=== PATIENT | female | born 1960 | race Caucasian/White ===

== ENCOUNTER 2021-05-12 09:29 | Outpatient (CLI) | payer OTHER, SELFPAY ==
--- NOTE | 2021-05-12 09:33 | MR_ITS ---
WS: [id number] MRI THORACIC SPINE noncontrast. HISTORY: COMPRESSION FX T9-T10 VERTEBRA COMPARISON: 08/09/2018 TECHNIQUE: Multiplanar sequences are performed in sagittal and axial planes. Mild increase in the thoracic kyphosis. Very slight curvature of the mid to lower thoracic vertebral bodies to the LEFT. Disc spaces are mildly desiccated throughout. There is mild anterior wedging of T 7 and T8 8 with no edema. Mild anterior wedging of T10 by 20%. There is been a mild progression of th e fracture since 08/09/2018. There is additional very mild anterior wedging of T11. No acute marrow to edema to suggest an acute fracture. Nerve root sleeve diverticulum on the RIGHT at C7-T1. T1-2: Mild facet arthritis. T2-3: Mild bilateral facet joint arthritis. Mild foraminal narrowing. T3-4: Normal. T4-5: Moderate bilateral facet joint arthritis. Small nerve root sleeve diverticulum on the RIGHT. T here is moderate bilateral foraminal stenosis. T5-6: Mild foraminal narrowing due to facet arthritis. T6-7: Shallow RIGHT paracentral disc protrusion with annular fissure and mild facet arthritis. Mild LEFT foraminal narrowing. T7-8: Moderate RIGHT paracentral disc protrusion and facet joint arthritis. No disc encroachment con tact on the cord. Moderate foraminal stenosis. T8-9: Mild disc bulging with moderate facet joint arthritis. Moderate bilateral foraminal stenosis, LEFT greater than RIGHT. T9-10: Moderate bilateral facet joint arthritis and foraminal stenosis. T10-11: Moderate bilateral facet joint arthritis. There is a small central broad-based disc protrusi on and LEFT nerve root sleeve diverticulum. There is encroachment into the thecal sac with only mild central stenosis. Moderate bilateral foraminal stenosis. T11-12: Normal. At T12-L1 and L1-2. Slight retropulsion of the vertebral bodies with osteophytes and central disc pro trusions. No significant stenosis. MR/MR thoracic spin wo con* [id number] IMPRESSION: 1. Mild progression of the previously described T10 anterior compression fract ure. Fracture now approximately 20%. 2. Additional very mild anterior wedging of T7, T8 and T11, chronic. 3. Multilevel facet joint arthritis as described above. 4. RIGHT paracentral disc protrusions at T6-7 and T7-8 without cord contact. 5. Mild central stenosis at T10-11 with moderate bilateral foraminal stenosis. 6. Moderate bilateral foraminal stenosis at T4-5, T7-8, T8-9 and T9-10.
== END 2021-05-12 09:30 | disposition home or self-care (01) ==
LOC: RADSHAW 09:32
PROVIDERS: Family Provider Nurse Practitioner; PCP Nurse Practitioner; Visit Provider Nurse Practitioner
DX: S22.070A Wedge compression fracture of T9-T10 vertebra, initial encounter for closed fracture (principal); M48.04 Spinal stenosis, thoracic region; M51.24 Other intervertebral disc displacement, thoracic region; X58.XXXA Exposure to other specified factors, initial encounter
CPT/HCPCS: 72146

== ENCOUNTER → 2021-07-21 11:49 | Outpatient (BNVA) | payer OTHER, SELFPAY | PROVIDERS: Family Provider Nurse Practitioner; PCP Nurse Practitioner; Referring Provider Nurse Practitioner; Visit Provider Specialist | DX: R20.0 Anesthesia of skin (principal); R20.2 Paresthesia of skin | CPT/HCPCS: 95910 ==

== ENCOUNTER → 2021-07-29 09:26 | Outpatient (BNVA) | payer OTHER, SELFPAY | PROVIDERS: Family Provider Nurse Practitioner; PCP Nurse Practitioner; Visit Provider Specialist | DX: M25.512 Pain in left shoulder (principal) | CPT/HCPCS: 73030 ==

== ENCOUNTER 2021-08-11 06:00 | Outpatient (RCR) | payer OTHER, SELFPAY | END 2021-09-05 23:59 | disposition home or self-care (01) | LOC: SPT 06:00 | PROVIDERS: PCP Nurse Practitioner; Referring Provider Nurse Practitioner; Visit Provider Nurse Practitioner | DX: M25.512 Pain in left shoulder (principal) | CPT/HCPCS: 97161 ==

== ENCOUNTER 2021-09-06 06:00 | Outpatient (RCR) | payer OTHER, SELFPAY | END 2021-10-06 23:59 | disposition home or self-care (01) | LOC: SPT 06:00 | PROVIDERS: PCP Nurse Practitioner; Referring Provider Nurse Practitioner; Visit Provider Nurse Practitioner | DX: M25.512 Pain in left shoulder (principal) | CPT/HCPCS: 97110 ==

== ENCOUNTER → 2021-10-19 11:25 | Outpatient (BNVA) | payer OTHER, SELFPAY | PROVIDERS: PCP Nurse Practitioner; Referring Provider Nurse Practitioner; Visit Provider Specialist | DX: M65.331 Trigger finger, right middle finger (principal); M18.12 Unilateral primary osteoarthritis of first carpometacarpal joint, left hand; M18.11 Unilateral primary osteoarthritis of first carpometacarpal joint, right hand; G56.02 Carpal tunnel syndrome, left upper limb | CPT/HCPCS: 20550; 73110; 99214; 99215; J1100; J2795 ==

== ENCOUNTER 2021-10-27 07:59 | Outpatient (CLI) | payer OTHER, SELFPAY ==
--- NOTE | 2021-10-27 08:00 | MR_ITS ---
WS: [id number] MRI LEFT SHOULDER HISTORY: M25.512 - Pain in left shoulder COMPARISON: Radiograph 07/29/2021 TECHNIQUE: Multiplanar sequences of the shoulder joint are submitted. Metallic artifact throughout the soft tissues surrounding the LEFT shoulder from prior surgery. Moderate AC joint hypertrophy. AC joint is narrowed with mild soft tissue hypertrophy and bone hypert rophy. There is mild encroachment upon the supraspinatus tendon at the myotendinous insertion. Small osteophyte from the distal acromion with minimal encroachment and narrowing of the subacromial space. Moderate amount of fluid in the subacromial and subdeltoid bursa. No os acromion. Biceps tendon is n ormally positioned within the bicipital groove but the portion of the biceps tendon in the bicipital groove is small caliber and of increased signal suggesting partial prior tear. Osteophytic changes surrounding the humeral head and subchondral cysts and edema. Moderate narrowing of the glenohumeral joint with loss of cartilage along the glenoid. Chronic degenerative appearing c hanges within the labrum. Portions of the labrum are obscured by the mitral metallic artifact. There is also edema in the glenoid. Mild atrophy of the supraspinatus muscle. Insertion site tear of the supraspinatus measures 5 mm in d iameter involving the articular surface. No retraction of the tendon. Distal subscapularis tendon is partially obscured by marked metallic artifact. Infraspinatus tendon is intact. MR/MR shoulder LT wo con* [id number] IMPRESSION: 1. Marked metallic artifact overlies the LEFT shoulder obscuring portions of t he soft tissue from prior surgery. 2. Moderate AC joint arthritis with encroachment upon the myotendinous inserti on of the supraspinatus. 3. Chronic tear biceps tendon in the bicipital groove. 4. 5 mm insertion site tear distal supraspinatus tendon. 5. Moderate osteoarthritic changes at the glenohumeral joint and surrounding t he humeral head. Osteophytosis with subchondral cystic changes and marrow edema . 6. Moderate subacromial and subdeltoid bursal fluid.
== END 2021-10-27 08:00 | disposition home or self-care (01) ==
LOC: RAD 08:00
PROVIDERS: PCP Nurse Practitioner; Visit Provider Specialist
DX: M25.512 Pain in left shoulder (principal)
CPT/HCPCS: 73221

== ENCOUNTER 2021-11-04 13:37 | Outpatient (CLI) | payer OTHER, SELFPAY ==
--- NOTE | 2021-11-04 13:43 | MM_ITS ---
WS: [id number] BILATERAL 3D TOMOSYNTHESIS DIGITAL SCREENING MAMMOGRAPHY WITH CAD CLINICAL INFORMATION: SCREENING HISTORY: Screening mammogram. No current complaints. COMPARISON: December 07, 2018 TECHNIQUE: Bilateral CC and MLO views. FINDINGS: Scattered fibroglandular densities bilaterally. Dystrophic calcification upper outer RIGHT breast. St able ovoid nodule central RIGHT breast measuring 11 mm. Vascular calcification. No suspicious focal m ass, asymmetry, calcifications, or architectural distortion. No evidence of malignancy. MM/[place] [id number] IMPRESSION: BI-RADS: 2-Benign FOLLOW UP: 1 Year Follow-up Recommend return to annual screening mammography.
== END 2021-11-04 13:38 | disposition home or self-care (01) ==
LOC: RAD 13:39
PROVIDERS: PCP Nurse Practitioner; Visit Provider Nurse Practitioner
DX: Z12.31 Encounter for screening mammogram for malignant neoplasm of breast (principal)
CPT/HCPCS: 77063; 77067

== ENCOUNTER → 2021-11-16 13:01 | Outpatient (BNVA) | payer OTHER, SELFPAY | PROVIDERS: PCP Nurse Practitioner; Visit Provider Specialist | DX: M75.112 Incomplete rotator cuff tear or rupture of left shoulder, not specified as traumatic (principal); M75.82 Other shoulder lesions, left shoulder | CPT/HCPCS: 20610; 99213; J1100; J2795; J3301 ==

== ENCOUNTER → 2021-11-18 07:54 | Outpatient (BNVA) | payer OTHER, SELFPAY | PROVIDERS: PCP Nurse Practitioner; Visit Provider Specialist | DX: M18.11 Unilateral primary osteoarthritis of first carpometacarpal joint, right hand (principal); M65.331 Trigger finger, right middle finger | CPT/HCPCS: 99214 ==

== ENCOUNTER 2021-11-20 05:47 | Day surgery (SDC) | payer OTHER, SELFPAY ==
[2021-11-19 08:37] VITALS: BMI 23.1
[2021-11-20] VITALS (8 sets, daily range): BP systolic 160–208; BP diastolic 89–114; PULSE 75–97; RESP 12–20; TEMP 36.2–36.5; O2SAT 94–99
[2021-11-20] MEDS: sodium chloride 0.9% 1,000 ML 30 ML IV (06:16)
[2021-11-20] MEDS: CELEcoxib 200 mg Capsule 400 MG PO (06:16)
[2021-11-20] MEDS: acetaminophen 1,000 MG/100 ML PIGGYBACK 400 MG IV (06:17)
--- NOTE | 2021-11-20 06:55 | W.PM.OPSUD ---
Surgery/Procedure H&P Update DATE OF PROCEDURE: November 20, 2021 DATE H&P PERFORMED: 11/18/21 PREOP DIAGNOSIS: Right long finger triggering PLANNED PROCEDURE: Operation Date: 11/20/21 07:00 Proposed Procedures p RIGHT LONG FINGER TRIGGER FINGER RELEASE [id number],M65.30(Right) - Steph Duke MD Related Problem List Diagnoses (1) Trigger finger, right middle finger:
--- NOTE | 2021-11-20 06:56 | ANES.PREANE2 ---
Pre-Anesthetic Assessment Height/Weight: Height 1.68 m Weight 64.864 kg Temp Pulse Resp BP Pulse Ox 97.7 F 76 18 182/98 99 11/20/21 05:57 11/20/21 05:57 11/20/21 05:57 11/20/21 05:57 11/20/21 05:57 Preop Diagnosis: Right long finger triggering Operation Date: 11/20/21 07:00 Proposed Procedures p RIGHT LONG FINGER TRIGGER FINGER RELEASE [id number],M65.30(Right) - Steph Duke MD Familial anesthetic complications: None Was Beta Martha taken within 24 hours: N/A Was Clonidine taken within 24 hours: N/A Last intake: Intake Last Liquid Date 11/19/21 Last Liquid Time 22:00 Last Solid Date 11/19/21 Last Solid Time 20:00 Social No alcohol and No tobacco Exam alert, oriented x 3, clear to auscultation bilaterally and regular rate & rhythm Airway Submandibular: within normal limits Cervical ROM: within normal limits Mallampati: Class II Dentition: full Pulmonary Asthma and Chronic Obstructive Pulmonary Disease CV/HEM Hypertension Anesthetic Plan ASA status: 2 Anesthesia: General Medications/Allergies Home Medications Medication Instructions Recorded Confirmed Last Taken Type budesonide-formoterol HFA 160 2 puff INHALATION BID 04/17/20 11/20/21 11/19/21 18:00 History mcg-4.5 mcg/actuation aerosol inhaler (Symbicort) gabapentin 300 mg capsule 300 mg PO TID 04/17/20 11/20/21 Unknown History ipratropium 18 mcg-albuterol 103 1 spray INHALATION Q8H PRN 04/17/20 11/20/21 11/19/21 18:00 History mcg/actuation aerosol inhaler lisinopril 5 mg tablet 5 mg PO DAILY 04/17/20 11/20/21 11/19/21 08:00 History sertraline 100 mg tablet 150 mg PO DAILY tab 04/17/20 11/20/21 11/19/21 08:00 History calcium carbonate 1,000 1 tab PO DAILY tab 10/02/20 11/20/21 11/19/21 18:00 History mg-simethicone 60 mg chewable tablet glucosamine sulfate 2KCl 1,000 mg 1,000 mg PO DAILY tab 10/02/20 11/20/21 11/19/21 18:00 History tablet (Glucosamine Relief) multivitamin 1 tab PO DAILY 10/02/20 11/20/21 11/19/21 18:00 History ammonium lactate 12 % lotion 1 applic TOPICAL BID #400 g 12/09/20 11/20/21 Unknown Rx Allergies Allergy/AdvReac Type Severity Reaction Status Date / Time No Known Allergies Allergy Verified 11/20/21 05:58 Current Medications Generic Name Dose Route Start Last Admin Trade Name Elisa PRN Reason Stop Dose Admin Sodium Chloride 1,000 mls @ 30 mls/hr 11/20/21 06:00 11/20/21 06:16 Sodium Chloride 0.9% IV 11/21/21 05:59 30 mls/hr .Q24H JAVIER Administration PFSH Anesthesia Medical History Chronic obstructive pulmonary disease Depression FH: total knee replacement HTN (hypertension) Surgical History H/O shoulder surgery History of back surgery Social History Smoking and tobacco status: never smoked Second hand smoke exposure: No Smoking risk assessment/counseling performed?: No Alcohol intake: never Adopted: Yes Lives independently: Yes Household members: spouse Marital status: Current occupational status: employed History of recent travel: No Current gender identity: Female Data Anesthesia Cardiac Studies: No Data to Display
[2021-11-20] MEDS: ceFAZolin 2,000 MG in sodium chloride 0.9% (plus) 50 ML 100 MG IV (07:00)
--- NOTE | 2021-11-20 08:01 | P.OP_ITS ---
Operative Report Date of procedure: November 20, 2021 Pre-op diagnosis: Right long finger triggering Post-op diagnosis: Right long finger triggering Procedure done: Right long trigger finger release Specimens removed/disposition: None Surgeon: Steph Duke Cartridge Assembling Machine Adjuster: None Anesthesia: General (LMA, ASA 2) Estimated blood loss (mL): 0 Tourniquet time (min): 18 (At 250 mmHg) IV fluids (mL): 500 Urine output (mL): 0 (No Hanks) Complications: None Condition: stable Disposition: PACU (Then discharge to home) Brief History: Carolynn is a 61-year-old woman who presented to my office with complaints of triggering of her right long finger. She denied any injury to her hand, but the finger interferes with her activities of daily living. After discussion, she w ished to proceed with trigger finger release. Risks and complications were discussed as well as questions were answered. Consents were signed preoperatively in the office. Procedure: Patient was brought to the operating theater. She was placed on the operating room table. General anesthesia was administered per LMA. Patient received Ancef 2 g prophylactically. A tourniquet was placed high on the arm and was elevated prior to beginning his surgical procedure. Tourniquet time was 18 minutes at 250 mmHg. Surgical pause was performed prior to commencement of the surgical procedure. At the time of the surgical pause we identified the site and side of surgery. We also identified the patient's identity and appropriate administration of IV antibiotics. Following the surgical pause, an incision was made along the distal palmar crease beneath the long finger. Dissection continued through the skin to the subcutaneous tissues using a scalpel. Blunt dissection was then utilized to spread soft tissues and allow access to the A1 sergio. It was then incised longitudinally and sharply using a knife. This was accomplished without difficulty and atraumatically. Once the A1 sergio was released, tendons were brought up out of the wound and evaluated. There were no gross masses on the tendons. Tendons were returned to normal position. We then irrigated the wound and subsequently closed it with 3-0 nylon with an interrupted mattress type suture. Following closure of the wound, the wound was injected with bupivacaine plain into the subcutaneous tissues as a local anesthetic. Sterile dressing was then placed consisting of Dermabond, OpSite, fluffed fluffs, sterile soft roll, and an Andrei wrap. The patient was returned to recovery in satisfactory condition. She will be discharged home to follow-up with me in the office. There were no complications and no specimens. Related Problem List Diagnoses (1) Trigger finger, right middle finger:
--- NOTE | 2021-11-20 13:42 | ANE.PACU2 ---
Inpatient post-anesthesia follow up: Airway intact: Yes Vital signs: Temperature 97.2 F Pulse Rate 75 Respiratory Rate 18 Blood Pressure 186/97 Pulse Oximetry 96 Oxygen Delivery Me thod Room Air Oxygen Flow Rate Fraction of Inspir ed Oxygen Hydration adequate: Yes Nausea and vomiting: No Pain level: 1 Mental status: Baseline
== END 2021-11-20 08:56 | disposition home or self-care (01) ==
PROVIDERS: PCP Nurse Practitioner; Visit Provider Specialist
PROC: (CPT 26055; principal; 2021-11-20 07:00)
DX: M65.331 Trigger finger, right middle finger (principal); J44.9 Chronic obstructive pulmonary disease, unspecified; I10 Essential (primary) hypertension
CPT/HCPCS: 26055; J1100; J2370; J2405; J2704; J3010; J3490; J7030

== ENCOUNTER → 2021-12-03 08:31 | Outpatient (BNVA) | payer OTHER, SELFPAY | PROVIDERS: PCP Nurse Practitioner; Visit Provider Nurse Practitioner Family | DX: Z48.89 Encounter for other specified surgical aftercare (principal) | CPT/HCPCS: 99024 ==

== ENCOUNTER → 2021-12-08 13:18 | Outpatient (BNVA) | payer OTHER, SELFPAY | PROVIDERS: PCP Nurse Practitioner; Visit Provider Nurse Practitioner Family | DX: Z48.89 Encounter for other specified surgical aftercare (principal) | CPT/HCPCS: 99024; 99213 ==

== ENCOUNTER → 2022-02-03 08:55 | Outpatient (BNVA) | payer OTHER, SELFPAY | PROVIDERS: PCP Nurse Practitioner; Visit Provider Specialist | DX: M18.11 Unilateral primary osteoarthritis of first carpometacarpal joint, right hand (principal) | CPT/HCPCS: 20610; 73130; 99213 ==

== ENCOUNTER 2022-02-03 15:41 | Outpatient (CLI) | payer OTHER, SELFPAY | END 2022-02-03 15:42 | disposition home or self-care (01) | LOC: SPT 15:42 | PROVIDERS: PCP Nurse Practitioner; Visit Provider Specialist | DX: Z46.89 Encounter for fitting and adjustment of other specified devices (principal); M18.11 Unilateral primary osteoarthritis of first carpometacarpal joint, right hand | CPT/HCPCS: 97760; 99213; L3924 ==

== ENCOUNTER 2022-02-20 15:50 | Emergency (ER) | payer OTHER, BC, SELFPAY ==
--- NOTE | 2022-02-20 15:57 | XRR_ITS ---
PROCEDURE INFORMATION: Exam: XR Left Ankle Exam date and time: 02/20/2022 4:11 PM Age: 61 years old Clinical indication: Injury or trauma; Fall; Blunt trauma; Ankle; Left TECHNIQUE: Imaging protocol: Radiologic exam of the Left ankle. Views: 3 or more views. COMPARISON: No relevant prior studies available. FINDINGS: Bones/joints: There is a benign exostosis present involving the distal lateral shaft of the tibia. This finding appears chronic. No acute bony abnormalities seen. A small bone spurs present on the inferior calcaneus. Soft tissues: Soft tissue edema is seen in the lateral aspect of the ankle . XR/XR ankle LT min 3V* [id number] IMPRESSION: 1. No acute bone abnormality. 2. Soft tissue edema lateral aspect of the ankle. . 3. Small chronic exostosis seen in the distal lateral shaft of the tibia. 4. Bone spur inferior calcaneus
[2022-02-20 16:05] VITALS: BP 145/93; PULSE 88; RESP 18; TEMP 36.3; O2SAT 99; BMI 22.8
--- NOTE | 2022-02-20 17:55 | W.ED.EXTPRO ---
HPI - Extremity Problem General: Chief complaint: Extremity Injury, Lower Stated complaint: Left ankle injury Time Seen by Provider: 02/20/22 17:33 History of Present Illness: 61-year-old female comes in today with complaints of injury to the left ankle. Patient reports that she was walking and she accidentally rolled her ankle around noon today. Patient had increased swelling and bruising and was concerned about fracture. Patient has been able to bear weight on it. Patient appears in no acute distress. Associated symptoms: Deny chest pain or fever(s) Review of Systems Const: Denies: fever(s) Card: Denies: chest pain Resp: Denies: dyspnea Musc: Reports: extremity pain and extremity swelling PFS ED PFSH: Medical History Chronic obstructive pulmonary disease Depression FH: total knee replacement HTN (hypertension) Surgical History H/O shoulder surgery History of back surgery Social History Smoking and tobacco status: never smoked Second hand smoke exposure: No Smoking risk assessment/counseling performed?: No Alcohol intake: never Adopted: Yes Lives independently: Yes Household members: spouse Marital status: Current occupational status: employed History of recent travel: No Current gender identity: Female Physical Exam Const: COMMON NORMALS: alert HENMT: COMMON NORMALS: normocephalic HEAD & SCALP: normocephalic Neck/C-Spine: COMMON NORMALS: full ROM Resp: COMMON NORMALS: normal respiratory effort Cardio: COMMON NORMALS: regular rate RATE: regular rate Back/Pelvis: COMMON NORMALS: thoracic and lumbar spine normal to inspection Extremity: LEFT LOWER EXTREMITY: Yes ankle joint (Swelling neck ecchymosis to the lateral left ankle.) Left ankle: Yes inspection, Yes palpation (Positive pulses and sensation.) and Yes ROM Neuro: SENSORIUM/ORIENTATION: Yes alert Skin: COMMON NORMALS: turgor normal GENERAL SKIN EXAM: turgor normal Course Vital Signs: Vital signs: Vital Signs Temperature 97.4 F L 02/20/22 16:05 Pulse Rate 88 02/20/22 16:05 Respiratory Rate 18 02/20/22 16:05 Blood Pressure 145/93 02/20/22 16:05 Pulse Oximetry 99 02/20/22 16:05 Oxygen Delivery Me thod 02/20/22 16:05 MDM - Extremity (Nontraumatic) Medical Decision Making 61-year-old female comes in today for injury to the left ankle. On exam patient has some tenderness and swelling with ecchymosis to the left lateral ankle. Pulses and sensation are intact. Differential diagnosis includes fracture, sprain, contusion. X-ray noted no fracture or dislocation. Reviewed exam with patient with recommendations for treatment and follow-up. Patient reported understanding and agreed to plan. Lab Data Radiology Impressions Ankle X-Ray 02/20/22 15:57 IMPRESSION: 1. No acute bone abnormality. 2. Soft tissue edema lateral aspect of the ankle. . 3. Small chronic exostosis seen in the distal lateral shaft of the tibia. 4. Bone spur inferior calcaneus Discharge Plan Discharge Patient Disposition: Home Clinical Impression: Left ankle sprain Qualifiers: Encounter type: initial encounter Involved ligament of ankle: unspecified ligament Qualified Code(s): S93.402A - Sprain of unspecified ligament of left ankle, initial encounter Condition: Stable Prescriptions: No Action multivitamin Tablet 1 tab PO DAILY calcium carbonate-simethicone 1,000-60 mg tablet,chewable 1 tab PO DAILY glucosamine sulfate 2KCl [Glucosamine Relief] 1,000 mg tablet 1,000 mg PO DAILY Rx Instructions: administer with meals ammonium lactate 12 % lotion 1 applic topical BID Qty: 400 5RF gabapentin 300 mg capsule 300 mg PO TID ipratropium-albuterol 18-103 mcg/actuation aerosol 1 spray inhalation Q8H PRN (Reason: shortness of breath or wheezing) budesonide-formoterol [Symbicort] 160-4.5 mcg/actuation HFA aerosol inhaler 2 puff inhalation BID sertraline 100 mg tablet 150 mg PO DAILY lisinopril 5 mg tablet 5 mg PO DAILY (DME) [facility] left thumb splint See Rx Instructions .Route .MEDSUPPLY Qty: 1 0RF Rx Instructions: As directed Discharge Orders: Discharge ED (Routine); Ordered 02/20/22 Ordered By: Kermit Baxter Referrals: Lily Oh INFUSION THERAPY NURSE [Primary Care Provider] - Discharge Diet: Usual diet Discharge Activity: Increase activity as tolerated Patient Instructions: Ankle Sprain (ED) Activity Restrictions/Additional Instructions: Elastic bandage for comfort, acetaminophen or ibuprofen for pain, ice and elevate for the next 2 to 3 days for swelling and pain. Follow-up with primary care in 1 week for recheck. Coding Level of Care Code ED Electric Motor Repairman for Hilda Ornelas
== END 2022-02-20 18:06 | disposition home or self-care (01) ==
PROVIDERS: Emergency Provider Nurse Practitioner Family; PCP Nurse Practitioner
DX: S93.402A Sprain of unspecified ligament of left ankle, initial encounter (principal); I10 Essential (primary) hypertension; J44.9 Chronic obstructive pulmonary disease, unspecified; X50.1XXA Overexertion from prolonged static or awkward postures, initial encounter
CPT/HCPCS: 73610; 99283

== ENCOUNTER → 2022-07-14 10:06 | Outpatient (BNVA) | payer OTHER, SELFPAY | PROVIDERS: PCP Nurse Practitioner; Referring Provider Nurse Practitioner; Visit Provider Specialist | DX: M18.0 Bilateral primary osteoarthritis of first carpometacarpal joints (principal) | CPT/HCPCS: 20610; 73110; 99213; J1100; J2795; J3301 ==

== ENCOUNTER → 2022-07-20 14:36 | Outpatient (BNVA) | payer OTHER, SELFPAY | PROVIDERS: PCP Nurse Practitioner; Visit Provider Podiatrist Foot & Ankle Surgery | DX: M21.371 Foot drop, right foot (principal); L60.3 Nail dystrophy; M20.40 Other hammer toe(s) (acquired), unspecified foot; G62.9 Polyneuropathy, unspecified; M21.42 Flat foot [pes planus] (acquired), left foot; M21.41 Flat foot [pes planus] (acquired), right foot | CPT/HCPCS: 99213 ==

== ENCOUNTER 2022-10-07 06:00 | Outpatient (RCR) | payer OTHER, SELFPAY | END 2022-11-05 23:59 | disposition home or self-care (01) | LOC: SPT 06:00 | PROVIDERS: PCP Nurse Practitioner; Visit Provider Nurse Practitioner | DX: R32 Unspecified urinary incontinence (principal) | CPT/HCPCS: 97110; 97161; 97530 ==

== ENCOUNTER → 2022-10-20 10:30 | Outpatient (BNVA) | payer OTHER, SELFPAY | PROVIDERS: Visit Provider Specialist | DX: M18.0 Bilateral primary osteoarthritis of first carpometacarpal joints (principal) | CPT/HCPCS: 20610; J1100; J2795; J3301 ==

== ENCOUNTER 2022-10-21 09:06 | Outpatient (CLI) | payer OTHER, SELFPAY ==
--- NOTE | 2022-10-21 09:13 | MR_ITS ---
WS: [id number] MRI THORACIC SPINE WITHOUT CONTRAST TECHNIQUE: Sagittal T1, T2 and STIR imaging. Axial T2 imaging. Noncontrast imaging obtained. CLINICAL INFORMATION: INTERVERTEBRAL DISC DISORDER W/RADICULPATHY TSPINE COMPARISON: MRI May 12, 2021 FINDINGS: Moderate thoracic curve. No acute compression fractures. Small central disc protrusions in the upper and mid thoracic spine. Additional small protrusions lower thoracic spine. Chronic anterior wedging i n the mid thoracic spine with endplate Schmorl's nodes. Cord signal appears normal. Mild compression superior endplate at T10 with chronic appearance is unchanged. Small central protrus ions more prominent at T6-T7, T7-T8, T8-T9, T10-T11, T12-L1, and L1-L2. Slight retrolisthesis T12 on L1. Disc protrusion T7-T8 with slight indentation on the thoracic cord. Mild central canal stenosis T10-T 11. Narrowing of the subarticular recess L1-L2 RIGHT greater than LEFT. Foraminal narrowing worse at RIGHT T10-T11 with moderate RIGHT foraminal narrowing. Moderate bilatera l T12-L1 foraminal narrowing. Mild bilateral T7-T8, T8-T9,T9-T10 bony foraminal narrowing unchanged. Moderate facet arthropathy lower thoracic spine. Normal caliber thoracic aorta. MR/MR thoracic spin wo con* [id number] IMPRESSION: 1. Mild thoracic kyphosis. Mild thoracic curve. No acute appearing compression fractures. 2. Chronic anterior wedging with mild compression superior endplate T10 is unc hanged. 3. RIGHT pericentral disc protrusion T7-T8 with slight indentation RIGHT ventr al thoracic cord is unchanged in appearance. 4. Mild central canal stenosis T10-T11 appears stable. Moderate RIGHT T10-T11 bony foraminal narrowing. 5. Moderate bilateral T12-L1 foraminal narrowing. 6. Mild bilateral L1-L2 foraminal narrowing worse in the RIGHT with narrowing of the RIGHT L1-L2 subarticular recess. 7. Moderate facet arthropathy in the mid and lower thoracic spine unchanged. 8. Overall no significant changes compared to May 12, 2021.
== END 2022-10-21 09:07 | disposition home or self-care (01) ==
PROVIDERS: PCP Nurse Practitioner; Visit Provider General Practice
DX: M51.14 Intervertebral disc disorders with radiculopathy, thoracic region (principal); M48.04 Spinal stenosis, thoracic region
CPT/HCPCS: 72146

== ENCOUNTER 2022-11-06 06:00 | Outpatient (RCR) | payer OTHER, SELFPAY | END 2022-12-02 23:59 | disposition home or self-care (01) | LOC: SPT 06:00 | PROVIDERS: PCP Nurse Practitioner; Visit Provider Nurse Practitioner | DX: R32 Unspecified urinary incontinence (principal) | CPT/HCPCS: 97530 ==

== ENCOUNTER → 2022-11-15 10:16 | Outpatient (BNVA) | payer OTHER, SELFPAY | PROVIDERS: PCP Nurse Practitioner; Visit Provider Podiatrist Foot & Ankle Surgery | DX: M21.371 Foot drop, right foot (principal); L60.3 Nail dystrophy; M20.41 Other hammer toe(s) (acquired), right foot; M21.42 Flat foot [pes planus] (acquired), left foot; M21.41 Flat foot [pes planus] (acquired), right foot; G62.9 Polyneuropathy, unspecified | CPT/HCPCS: 99213 ==

== ENCOUNTER 2022-11-23 09:59 | Outpatient (CLI) | payer OTHER, SELFPAY ==
--- NOTE | 2022-11-23 10:10 | MM_ITS ---
WS: [id number] BILATERAL 3D TOMOSYNTHESIS DIGITAL SCREENING MAMMOGRAPHY WITH CAD CLINICAL INFORMATION: SCREENING HISTORY: Screening mammogram. No current complaints. COMPARISON: November 04, 2021 TECHNIQUE: Bilateral CC and MLO views. FINDINGS: Scattered fibroglandular densities bilaterally. No suspicious focal mass, asymmetry, calcifications, or architectural distortion. No evidence of malignancy. Stable 11 mm ovoid nodule RIGHT breast. Dystr ophic lucent centered calcifications. Vascular calcification. MM/[place] [id number] IMPRESSION: BI-RADS: 2-Benign FOLLOW UP: 1 Year Follow-up Recommend return to annual screening mammography.
== END 2022-11-23 10:00 | disposition home or self-care (01) ==
LOC: RAD 10:04 → MOBLMAM 10:14
PROVIDERS: PCP Nurse Practitioner; Visit Provider Nurse Practitioner
DX: Z12.31 Encounter for screening mammogram for malignant neoplasm of breast (principal)
CPT/HCPCS: 77063; 77067

== ENCOUNTER → 2022-12-02 10:14 | Outpatient (BNVA) | payer OTHER, SELFPAY | PROVIDERS: PCP Nurse Practitioner; Visit Provider Podiatrist Foot & Ankle Surgery | DX: M21.371 Foot drop, right foot; L60.3 Nail dystrophy; M20.41 Other hammer toe(s) (acquired), right foot; M20.42 Other hammer toe(s) (acquired), left foot; M21.41 Flat foot [pes planus] (acquired), right foot; M21.42 Flat foot [pes planus] (acquired), left foot; G62.9 Polyneuropathy, unspecified | CPT/HCPCS: 28010; 99214 ==

== ENCOUNTER 2023-01-18 07:39 | Oncology outpatient (recurring) (ONCR) | payer OTHER, SELFPAY ==
--- OUTSIDE RECORDS SUMMARY | 2023-01-18 07:42 | XMS_ITS | Patient Health Record ---
Author Name Unknown Organization [facility] Address [address] [place] [address] Care Team Providers Care Removable Prosthodontist Name Role Phone Lily Samuels Primary Care Provider Unav ailable Johnna Hernandez Unavailable [phone] BRIAN Newton Unavailable Unavailable ALLERGIES No Known Allergies REASON FOR REFERRAL No Information MEDICATIONS Medication SIG (Take, Route, Frequency, Duration) Notes Start Date End Date Status Reglan 10 MG 1 tablet as directed Orally once for 1 day 10/26/2022 Active Sertraline HCl 25 MG 1 tablet Orally Once a day Active Lisinopril 5 MG 1 tablet Orally Once a day Active Wixela Inhub 250-50 MCG/ACT 1 puff Inhalation Twice a day Active SOCIAL HISTORY Tobacco Use: Social History Observation Description Date Details (start date - stop date) Never Smoker NA - NA Sex Assigned At : Social History Observation Description Sex Assigned At Unknown Tobacco Use/Smoking Question Answer Notes Are you a nonsmoker Alcohol Screen (Audit-C) Question Answer Notes Did you have a drink containing alcohol in the p ast year? No Points 0 Interpretation Negative VITAL SIGNS Heart Rate 65 /min 10/26/2022 Temperature 96.8 degrees Fahrenheit 10/26/2022 Respiratory Rate 20 /min 10/26/2022 Height-cm 167.64 cm 10/26/2022 Oximetry 100 % 10/26/2022 Blood pressure diastolic 76 mm Hg 10/26/2022 Weight-kg 60.33 kg 10/26/2022 Height 66 in 10/26/2022 Blood pressure systolic 124 mm Hg 10/26/2022 Weight 133.0 lbs 10/26/2022 BMI 21.46 kg/m2 10/26/2022 Encounters Encounter Location Date Provider Diagnosis [facility] [address] [place] [address] 10/22/2022 [place] [facility] [address] [place] [address] 10/26/2022 [place] [facility] [address] [place] [address] 10/26/2022 Johnna Hernandez Preprocedural examination Z01.818 and Screening for colon cancer Z12.11 ASSESSMENTS Encounter Date Diagnosis Assessment Notes Treatment Notes Treatment Clinical Notes 10/26/2022 Screening for colon cancer (ICD-10 - Z12.11) 10/26/2022 Preprocedural examination (ICD-10 - Z01.818) The patient has a prerequisite risk factors for development of colon cancer. I have discussed the options of screening testing with their advantages and disadvantages. I have recommended screening colonoscopy with possible biopsy and polypectomy. Risks and Benefits: The benefits, risks, and complications were presented to pt. The patient is aware of the risk of bleeding, perforation, infection, and anesthetic complications related to colonoscopy. The patient is aware that although colonoscopy is an accurate procedure, it does have some limitations. As a result, some lesions, including cancer may be missed by colonoscopy. Ample time was given to answer all questions. Instructions given for the bowel prep. Follow up will be determined after the colonoscopy. Refer back to PCP. 10/26/2022 Other Colonoscopy: Be fore Your Procedure material was printed, Learning About Foods That Are Good Sources of Fiber material was printed PLAN OF TREATMENT Pending Test Test Name Order Date Colonoscopy, Average Risk Screening-G012 1 10/26/2022 Next Appt Details Provider Name:Stephen toledo, 02/15/2023 01:30:00 PM, [address] [place], [address], Insurance Providers Payer Name Payer Address Payer Phone Subscriber Number Group Number Insured Name Patient Relationship to Insured Coverage Start Date Coverage End Date [employer] [address] [place] [phone] [id number] Carolynn Chavez Self - patient is the insured MEDICAL (GENERAL) HISTORY Medical History History ICD Code Hypertension Hemorrhoids COPD Depression Arthritis Degenerative disc disease Surgical History Surgery Date(Month/Year) Lumbar spine surgeries and fusion Right shoulder reverse arthroplasty Right knee replacement Right middle finger trigger release Uvulectomy
--- OUTSIDE RECORDS SUMMARY | 2023-01-18 07:42 | XMS_ITS | Continuity of Care Document ---
Author Name Unknown Organization [facility] Address [address] [place] [id number] Care Team Providers Care Rfid Technician Name Role Phone ANAIS VALVERDE Primary Care Physician Encounter MARIELENA_KIERAN [id number] Date(s): 12/27/22 - 12/27/[address] [address]- Discharge Disposition: Home or Self Care Attending Physician: SEJAL DOSS MD Allergies, Adverse Reactions, Alerts No Known Medication Allergies Assessment and Plan Diagnostic Tests Pending * Immunoglobulin G Synthesis Rate (CQ) 12/27/22 * Oligoclonal Bands CSF (CQ) 12/27/22 Results Laboratory List Name Date Cell Count CSF w/Reflex Diff. Stain Man 12/27/22 Glucose CSF 12/27/22 Total Protein CSF (Protein CSF) 12/27/22 Most recent to oldest [Reference Range]: 1 2 CSF Clarity [Clear] Clear (12/27/22 9:02 AM) CSF Color [Colorless] Colorless (12/27/22 9:02 AM) RBC CSF Cnt 611.11 cells/uL *NA* (12/27/22 9:02 AM) Tube Number 3 (12/27/22 9:02 AM) WBC CSF Cnt [>=9.9 cells/uL] 0.0 cells/u L *LOW* (12/27/22 9:02 AM) Glucose CSF [41-69 mg/dL] 61 mg/dL (12/27/22 9:02 AM) Tube Number CSF Tube 4 (12/27/22 9:02 AM) Tube 4 (12/27/22 9:02 AM) Protein Total CSF [16.0-44.0 mg/dL] 23.3 mg/dL (12/27/22 9:02 AM) Orders for Microbiology Reports Name Date Gram Stain 12/27/22 Microbiology Reports TEST:Gram Stain STATUS:Order in Progress BODY SITE: SOURCE:Cerebrospinal Fluid COLLECTED DATE/TIME:12/27/22 9:02 AM STAIN REPORT No cells seen No organisms seen Radiology Reports * Exam Date Time Procedure Performing Provider Status 12/27/22 9:12 AM IR Spinal Tap Therap eutic w Imaging Yun Tolliver Rad Techno I; Auth (Verified) Notes: (IR Spinal Tap Therapeutic w Imaging) Reason For Exam: Multiple sclerosis REPORT EXAMINATION: FLUOROSCOPY GUIDED LUMBAR PUNCTURE HISTORY: Evaluate for multiple sclerosis COMPARISON: None PHYSICIAN: Rocco Ace MD ANESTHESIA: Local DURATION: 10 Minutes MEDICATIONS:1% Lidocaine for local anesthesia COMPLICATIONS:None TECHNIQUE: After explanation of the risks, benefits, alternatives, and procedural details informed consent was obtained and a copy placed in the chart. The patient was brought to the fluoroscopy suite and positioned prone on the table. An appropriate entrance site was chosen. The overlying skin wasprepped and draped in normal sterile fashion. Maximal sterile barrier and sterile ultrasound technique were used for the entire procedure. Time out performed. Subcutaneous anesthesia achived with 5 mL of 1% lidocaine. Under serial fluoroscopic guidance a 22-gauge spinal needle was used to enter thethecal sac at L3-L4 with return of clear CSF. 11 mm H2O opening pressure was measured. Approximately 12 ml of CSF was aspirated and samples were sent for labs. The needle was removed and sterile Band-Aid applied. Spot fluoroscopic images were obtained. The patient tolerated the procedure well FINDINGS/IMPRESSION: Fluoroscopy guided lumbar puncture was performed without immediate complications. Opening pressure of 11 mm H2O. Final Signed by: ROCCO ACE MD Signed (Electronic Signature): 12/27/2022 10:44 am CDT Vital Signs Most recent to oldest [Reference Range]: 1 Patient Height 167.64 cm (12/27/22 8:00 AM) Patient Weight (kg) 58.97 kg (12/27/22 8:00 AM) [place] Body Weight Calculated 59.3 kg (12/27/22 8:00 AM) BSA Measured 1.66 m2 (12/27/22 8:00 AM) Body Mass Index Measured 20.98 kg/m2 (12/27/22 8:00 AM) Temperature Tympanic [96.6-99.6 DegF] 97 .7 DegF (12/27/22 8:00 AM) SpO2 94 % (12/27/22 10:15 AM) Peripheral Pulse Rate [60-100 bpm] 81 bp m (12/27/22 10:15 AM) Respiratory Rate [10-21 br/min] 16 br/mi n (12/27/22 8:00 AM) Social History Social History Type Response Sex Female Radiology * ROCCO ACE MD: VERIFY, VERIFY Event Display: Report EXAMINATION: FLUOROSCOPY GUIDED LUMBAR PUNCTURE HISTORY: Evaluate for multiple sclerosis COMPARISON: None PHYSICIAN: Rocco Ace MD ANESTHESIA: Local DURATION: 10 Minutes MEDICATIONS:1% Lidocaine for local anesthesia COMPLICATIONS:None TECHNIQUE: After explanation of the risks, benefits, alternatives, and procedural details informed consent was obtained and a copy placed in the chart. The patient was brought to the fluoroscopy suite and positioned prone on the table. An appropriate entrance site was chosen. The overlying skin wasprepped and draped in normal sterile fashion. Maximal sterile barrier and sterile ultrasound technique were used for the entire procedure. Time out performed. Subcutaneous anesthesia achived with 5 mL of 1% lidocaine. Under serial fluoroscopic guidance a 22-gauge spinal needle was used to enter thethecal sac at L3-L4 with return of clear CSF. 11 mm H2O opening pressure was measured. Approximately 12 ml of CSF was aspirated and samples were sent for labs. The needle was removed and sterile Band-Aid applied. Spot fluoroscopic images were obtained. The patient tolerated the procedure well FINDINGS/IMPRESSION: Fluoroscopy guided lumbar puncture was performed without immediate complications. Opening pressure of 11 mm H2O. Final Signed by: ROCCO ACE MD Signed (Electronic Signature): 12/27/2022 10:44 am CDT Patient Care team information Care Team Personnel Name: ANAIS VALVERDE Position: Physician - View Only Member Role: Primary Care Physician Address: Address: [address] [address]- Care Team Related Persons Name: LENARD CRUZ Address: Home
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
[2023-01-18 09:16] LABS: Basophils % 0.8 %; Eosinophils # 0.1 10^3/uL (0.0-0.8); Eosinophils % 1.7 %; Hematocrit 38.4 % (36-47); Lymphocytes # 1.7 10^3/uL (0.8-4.8); Lymphocytes % 32.3 %; Mean Corpuscular HGB Conc 32.3 g/dL (30-55); Mean Corpuscular Hemoglobin 31.7 pg (27-33); Mean Corpuscular Volume 98.2 fl (85-98); Mean Platelet Volume 9.7 fL (7.4-10.4); Monocytes # 0.3 10^3/uL (0.2-0.9); Monocytes % 5.1 %; Neutrophils % 59.9 %; Nucleated Red Blood Cells % 0 %; Platelet Count 229 10^3/cmm (157-399); Red Blood Count 3.91 10^6/uL (3.85-5.65); Red Cell Distribution Width 13.1 % (12.1-15.1); White Blood Count 5.33 10^3/uL (3.29-11.43)
[2023-01-18 09:37] LABS: Alanine Aminotransferase 18 U/L (0-33); Albumin Level 4.5 g/dL (3.5-5.2); Alkaline Phosphatase 69 U/L (35-105); Anion Gap 11.6 (5-19); Aspartate Amino Transferase 26 U/L (0-32); Blood Urea Nitrogen 10 mg/dL (8-23); Calcium 9.3 mg/dL (8.5-10.5); Carbon Dioxide 30 mmol/L (22-29); Chloride 99 mmol/L (98-107); Globulin 2.3 g/dL (1.3-4.6); Glomerular Filtration Rate 72.2 mL/min (90-130); Glucose 86 mg/dL (65-115); Immunoglobulin IGG 784 mg/dL (700-1600); Immunoglobulin IGM 40 mg/dL (40-230); Osmolality Calculated 280 mOsm/kg (285-295); Potassium 4.6 mmol/L (3.5-5.1); Sodium 136 mmol/L (136-145); Total Bilirubin 0.5 mg/dL (0.15-1.2); Total Protein 6.8 g/dL (6.6-8.7)
[2023-01-18 09:42] LABS: Immunoglobulin IGA < 50 mg/dL (70-400)
[2023-01-18 10:03] LABS: Ferritin 171 ng/mL (15-150); Iron 143 ug/dL (37-145); Total Iron Binding Capacity 238 mcg/dl; Unsaturated Iron Binding 95 ug/dL (112-347)
[2023-01-18 10:19] LABS: Vitamin B12 569 pg/mL (232-1245)
[2023-01-19 11:24] LABS: PROTEIN, TOTAL 6.4 g/dL (6.1-8.1)
[2023-01-19 11:50] LABS: KAPPA LIGHT CHAIN, FREE, SERUM 15.7 mg/L (3.3-19.4); KAPPA/LAMBDA LIGHT CHAINS FREE 1.24 (0.26-1.65); LAMBDA LIGHT CHAIN, FREE, SERU 12.7 mg/L (5.7-26.3)
[2023-01-19 15:49] LABS: ALPHA 1 GLOBULIN 0.3 g/dL (0.2-0.3); ALPHA 2 GLOBULIN 0.8 g/dL (0.5-0.9); BETA 1 GLOBULIN 0.4 g/dL (0.4-0.6); BETA 2 GLOBULIN 0.2 g/dL (0.2-0.5); GAMMA GLOBULIN 0.7 g/dL (0.8-1.7)
[2023-01-22 20:45] LABS: Kappa Free Light Chains Urine 1.82 mg/L (<=32.90)
== END 2023-02-05 23:59 | disposition home or self-care (01) ==
PROVIDERS: PCP Nurse Practitioner; Visit Provider Internal Medicine Medical Oncology
DX: R83.9 Unspecified abnormal finding in cerebrospinal fluid (principal); R89.9 Unspecified abnormal finding in specimens from other organs, systems and tissues
CPT/HCPCS: 36415; 80053; 82607; 82728; 82784; 83540; 83550; 83883; 84155; 84156; 84165; 85025; 86334; 86335; 99205

== ENCOUNTER 2023-01-31 10:49 | Outpatient (CLI) | payer OTHER, SELFPAY ==
[2023-01-31 12:03] LABS: Total Volume, Urine 1700 mL
[2023-02-01 16:48] LABS: CREATININE, 24 HOUR URINE 0.83 g/24 h (0.50-2.15); PROTEIN, TOTAL, 24 HR UR NOTE mg/24 h (<150); Protein/Creatinine Ratio NOTE (<0.150); Protein/Creatinine Ratio NOTE mg/g creat (<150)
[2023-02-04 09:49] LABS: ALBUMIN 0 %; ALPHA-1-GLOBULINS 0 %; ALPHA-2-GLOBULINS 0 %; BETA GLOBULINS 0 %; GAMMA GLOBULINS 0 %
== END 2023-01-31 10:50 | disposition home or self-care (01) ==
PROVIDERS: Internal Medicine Medical Oncology; PCP Nurse Practitioner; Visit Provider Internal Medicine Hematology & Oncology
DX: R89.9 Unspecified abnormal finding in specimens from other organs, systems and tissues (principal)
CPT/HCPCS: 82570; 84156; 84166; 86335

== ENCOUNTER → 2023-02-03 11:00 | Outpatient (BNVA) | payer OTHER, SELFPAY | PROVIDERS: PCP Nurse Practitioner; Visit Provider Specialist | DX: M18.0 Bilateral primary osteoarthritis of first carpometacarpal joints | CPT/HCPCS: 20600; 20610; J2795; J3301 ==

== ENCOUNTER → 2023-03-07 09:00 | Outpatient (BNVA) | payer OTHER, SELFPAY | PROVIDERS: PCP Nurse Practitioner; Visit Provider Podiatrist Foot & Ankle Surgery | DX: M21.371 Foot drop, right foot (principal); M20.41 Other hammer toe(s) (acquired), right foot; M21.41 Flat foot [pes planus] (acquired), right foot; M21.42 Flat foot [pes planus] (acquired), left foot | CPT/HCPCS: 99213 ==

== ENCOUNTER 2023-03-09 11:30 | Oncology outpatient (recurring) (ONCR) | payer OTHER, SELFPAY ==
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
== END 2023-04-07 23:59 | disposition home or self-care (01) ==
PROVIDERS: PCP Nurse Practitioner; Visit Provider Internal Medicine
DX: R83.9 Unspecified abnormal finding in cerebrospinal fluid (principal); D80.2 Selective deficiency of immunoglobulin A [IgA]; Z79.899 Other long term (current) drug therapy
CPT/HCPCS: 99213

== ENCOUNTER → 2023-05-26 11:31 | Outpatient (BNVA) | payer OTHER, SELFPAY | PROVIDERS: PCP Nurse Practitioner; Visit Provider Specialist | DX: M18.0 Bilateral primary osteoarthritis of first carpometacarpal joints (principal) | CPT/HCPCS: 20600; J1100; J2795; J3301 ==

== ENCOUNTER → 2023-06-06 09:33 | Outpatient (BNVA) | payer OTHER, SELFPAY | PROVIDERS: PCP Nurse Practitioner; Visit Provider Podiatrist Foot & Ankle Surgery | DX: M21.371 Foot drop, right foot; M20.41 Other hammer toe(s) (acquired), right foot; M20.42 Other hammer toe(s) (acquired), left foot; M21.41 Flat foot [pes planus] (acquired), right foot; M21.42 Flat foot [pes planus] (acquired), left foot; M20.21 Hallux rigidus, right foot | CPT/HCPCS: 73630; 99213 ==

== ENCOUNTER → 2023-08-25 09:01 | Outpatient (BNVA) | payer OTHER, SELFPAY | PROVIDERS: PCP Nurse Practitioner; Visit Provider Nurse Practitioner Family | DX: L82.1 Other seborrheic keratosis (principal); L57.8 Other skin changes due to chronic exposure to nonionizing radiation; D22.5 Melanocytic nevi of trunk; L81.4 Other melanin hyperpigmentation; L57.0 Actinic keratosis | CPT/HCPCS: 17000; 99213 ==

== ENCOUNTER → 2023-09-02 09:35 | Outpatient (BNVA) | payer OTHER, SELFPAY | PROVIDERS: PCP Nurse Practitioner; Visit Provider Specialist | DX: M18.0 Bilateral primary osteoarthritis of first carpometacarpal joints (principal) | CPT/HCPCS: 20600; J1100; J2795; J3301 ==

== ENCOUNTER 2023-11-21 14:20 | Emergency (ER) | payer OTHER, SELFPAY ==
[2023-11-21 15:11] VITALS: BP 150/99; PULSE 101; RESP 18; TEMP 36.6; O2SAT 93; BMI 20.9
[2023-11-21 15:23] VITALS: BP 140/91; PULSE 87; RESP 18; TEMP 36.9; O2SAT 95
--- NOTE | 2023-11-21 15:50 | W.ED.ANIMALB ---
HPI - Animal Bite General: Chief Complaint: Animal Bite Stated Complaint: dog bite Time Seen by Provider: 11/21/23 15:31 Source: patient Mode of arrival: ambulatory Limitations: no limitations History of Present Illness: Patient is a nice 63-year-old female presents to ED today for complaint of dog bite/scratches to the right hand and right leg. She states the animals were her own animals and up-to-date on immunizations. She states she believes she was bit to the right hand and the other dog scratched her right leg causing a laceration. Tetanus is up-to-date. complaint: animal bite Onset (ago): hour(s) Animal: dog Description of animal: household pet, immunizations UTD and appeared well Mechanism: bite and scratch Location - Extremities: Right: hand and lower leg Context: animals fighting Associated symptoms: Reports no associated symptoms Related Data: Patient tetanus UTD: Yes Review of Systems Musc: Reports: extremity pain; Denies: extremity swelling Skin/Breast: Reports: other (laceration/skin tear) PFS ED PFSH: Medical History IgA deficiency Chronic obstructive pulmonary disease HTN (hypertension) Depression FH: total knee replacement Surgical History History of back surgery H/O shoulder surgery Social History Smoking and tobacco/nicotine status: never used tobacco/nicotine Second hand smoke exposure: No Alcohol intake: never Substance/Drug Use: never Adopted: Yes Lives independently: Yes Household members: spouse Marital status: Current occupational status: employed Current gender identity: Female Physical Exam Const: COMMON NORMALS: no acute distress, average body habitus, patient oriented x3, no limitations, healthy appearing, alert and well nourished Extremity: COMMON NORMALS: full ROM and capillary refill normal GENERAL: Yes normal exam except as noted RIGHT UPPER EXTREMITY: Yes hand & digits (skin tear dorsal R hand; skin is extremely thin and would not hold stitch) Right hand and digits: Yes ROM exam (normal), Yes neurovascular exam (normal) and Yes tendon exam (normal) RIGHT LOWER EXTREMITY: Yes lower leg (laceration medial R lower leg; roughly 6cm) Right lower leg: Yes neurovascular exam (normal) OTHER: skin tear was copiously irrigated and will be tacked down with steri-strips as skin is extremely thin and I feel sutures would not be feasible Neuro: COMMON NORMALS: patient oriented x3, moves all extremities, no focal motor deficits, no sensory deficits noted and gait normal SENSORIUM/ORIENTATION: Yes alert Skin: TRAUMA: laceration Procedures Laceration Laceration 1: Site: lower extremity Side (If applicable): right Size (cm): 6.0 Description: linear Depth: simple, single layer Local Anesthetic: lidocaine 2% Amount of anesthesia used (mL): 4.0 Pre-repair: wound explored and irrigated extensively Skin layer closed with: nylon Size (cm): 5-0 Number of sutures: 9 Technique: simple, interrupted Course Vital Signs: Vital signs: Vital Signs Temperature 98.4 F 11/21/23 16:34 Pulse Rate 87 11/21/23 16:34 Respiratory Rate 18 11/21/23 16:34 Blood Pressure 140/91 11/21/23 16:34 Pulse Oximetry 95 11/21/23 16:34 Oxygen Delivery Me thod Room Air 11/21/23 15:23 MDM - Animal Bite Medical Decision Making Tetanus is up-to-date. She does not require rabies PEP. She will be placed on Augmentin. Skin tear to the right hand was copiously irrigated and tacked down with Steri-Strips. Laceration to her lower leg was copiously irrigated and repaired with sutures. Wound care/infection precautions discussed. Return to ED precautions given. Differential Diagnosis Likely bite by animal and dog bite Medical Records I reviewed the patient's medical records. No radiology studies performed this visit Discharge Plan Discharge Patient Disposition: Home Clinical Impression: Dog bite of right hand Qualifiers: Encounter type: initial encounter Qualified Code(s): S61.451A - Open bite of right hand, initial encounter Laceration of leg, right Qualifiers: Encounter type: initial encounter Qualified Code(s): S81.811A - Laceration without foreign body, right lower leg, initial encounter Condition: Stable Prescriptions: New amoxicillin-pot clavulanate 875-125 mg tablet 1 tab PO BID Qty: 14 0RF No Action multivitamin Tablet 1 tab PO DAILY calcium carbonate-simethicone 1,000-60 mg tablet,chewable 1 tab PO DAILY glucosamine sulfate 2KCl [Glucosamine Relief] 1,000 mg tablet 1,000 mg PO DAILY Rx Instructions: administer with meals gabapentin 300 mg capsule 300 mg PO TID ipratropium-albuterol 18-103 mcg/actuation aerosol 1 spray inhalation Q8H PRN (Reason: shortness of breath or wheezing) budesonide-formoterol [Symbicort] 160-4.5 mcg/actuation HFA aerosol inhaler 2 puff inhalation BID lisinopril 5 mg tablet 5 mg PO DAILY (DME) CO-Poly custom insoles L3010 See Rx Instructions .Route .MEDSUPPLY Qty: 1 0RF Rx Instructions: As directed by [facility] meloxicam 15 mg tablet 15 mg PO DAILY escitalopram oxalate 10 mg tablet 10 mg PO DAILY escitalopram oxalate 5 mg tablet 5 mg PO DAILY Rx Instructions: half a pill (DME) [facility] left thumb splint See Rx Instructions .Route .MEDSUPPLY Qty: 1 0RF Rx Instructions: As directed ([facility] [place]) EXTRA depth Orthopedic Shoes See Rx Instructions .Route .MEDSUPPLY Qty: 1 0RF Rx Instructions: As directed by CA and Daily Living Medical Discharge Orders: Discharge ED (Routine); Ordered 11/21/23 Ordered By: Tiffany Mercado Referrals: Lily Oh FNP [Primary Care Provider] - Patient Instructions: Animal Bite (ED) Activity Restrictions/Additional Instructions: As we discussed keep wounds clean with warm soap and water and monitor for signs of infection such as redness, swelling, discharge, increased pain, red streaking up your hand or leg, fevers, or any other concerns you may have. Please seek medical reevaluation if these occur. Please fill your antibiotics and start them immediately. Sutures will need to be removed in approximately 10 days. Coding Level of Care Code ED Notching Machine Operator for Hilda Ornelas
[2023-11-21 16:34] VITALS: BP 140/91; PULSE 87; RESP 18; TEMP 36.9; O2SAT 95
== END 2023-11-21 16:41 | disposition home or self-care (01) ==
PROVIDERS: Emergency Provider Physician Assistant; PCP Nurse Practitioner
DX: S61.451A Open bite of right hand, initial encounter (principal); S81.811A Laceration without foreign body, right lower leg, initial encounter; J44.9 Chronic obstructive pulmonary disease, unspecified; I10 Essential (primary) hypertension; W54.0XXA Bitten by dog, initial encounter
CPT/HCPCS: 12002; 99283

== ENCOUNTER 2023-12-01 13:40 | Outpatient (CLI) | payer OTHER, SELFPAY ==
--- NOTE | 2023-12-01 13:45 | MM_ITS ---
WS: [id number] SCREENING DIGITAL BREAST TOMOSYNTHESIS MAMMOGRAM WITH CAD HISTORY: SCREENING COMPARISON: 11/23/2022, 11/04/2021, 12/07/2018 Bilateral CC and MLO with tomosynthesis and synthetic mammography submitted. Computer aided detection analyzed. Breast composition: There are scattered areas of fibroglandular density. New mass in the lateral RIGH T breast towards the upper outer quadrant measures 5 x 4 mm. There is an additional well-circumscribe d mass just posterior to the nipple which has been present on multiple prior examinations measuring 9 x 9 mm. Benign calcifications. LEFT breast is negative. MM/[place] [id number] IMPRESSION: BI-RADS: 0-Incomplete: Need additional imaging evaluation FOLLOW UP: Need Additional Imaging RIGHT breast: Spot compression views (CC and MLO). True ML. Ultrasound to follo w if abnormality persists.
--- NOTE | 2023-12-01 13:45 | XR_ITS ---
WS: [id number] SCREENING DEXA SCAN [place] CLINICAL INFORMATION: SCREENING COMPARISON: None. FINDINGS: The LEFT forearm bone mineral density measures 0.85. This corresponds to a T score score of -0.3 and Z score of 1.1. Left femoral neck bone mineral density measures 0.757 g/cm2. This corresponds to a T score of -2.0 an d Z score of -0.7. Right femoral neck bone mineral density measures 0.850 g/cm2. This corresponds to a T score -1.3of an d Z score of 0.0. Mean femoral neck bone mineral density measures 0.803 g/cm2. This corresponds to a T score of -1.6 an d Z score of -0.3. XR/XR DEXA axial skeleton* [id number] IMPRESSION: Normal bone mineralization LEFT forearm. Osteopenia femoral necks. Patient's FRAX calculated 10 year probability for major osteoporotic fracture i s 11.4% and osteoporotic hip fracture is 2.2%.
== END 2023-12-01 13:41 | disposition home or self-care (01) ==
LOC: RAD 13:41
PROVIDERS: PCP Nurse Practitioner; Visit Provider Nurse Practitioner
DX: Z01.89 Encounter for other specified special examinations (principal); M85.852 Other specified disorders of bone density and structure, left thigh; M85.851 Other specified disorders of bone density and structure, right thigh; Z12.31 Encounter for screening mammogram for malignant neoplasm of breast; R92.323 Mammographic fibroglandular density, bilateral breasts; N63.11 Unspecified lump in the right breast, upper outer quadrant; N63.10 Unspecified lump in the right breast, unspecified quadrant; R92.1 Mammographic calcification found on diagnostic imaging of breast
CPT/HCPCS: 77063; 77067; 77080

== ENCOUNTER → 2023-12-09 09:30 | Outpatient (BNVA) | payer OTHER, SELFPAY | PROVIDERS: PCP Nurse Practitioner; Visit Provider Specialist | DX: M18.0 Bilateral primary osteoarthritis of first carpometacarpal joints (principal) | CPT/HCPCS: 20600; J1100; J2795; J3301 ==

== ENCOUNTER 2024-03-19 10:26 | Outpatient (CLI) | payer OTHER, SELFPAY ==
--- NOTE | 2024-03-19 10:32 | MM_ITS ---
WS: [id number] ADDITIONAL VIEWS RIGHT MAMMOGRAM WITH DIGITAL BREAST TOMOSYNTHESIS. RIGHT BREAST ULTRASOUND HISTORY: INCONCLUSIVE MAMMOGRAM COMPARISON: 12/01/2023, 11/23/2022, 11/04/2021 RIGHT MAMMOGRAM: Spot compression views and true ML with digital breast tomosynthesis and SM. Asymmetry in the lateral RIGHT breast near 9:00 becomes less apparent but is still present with addit ional spot compression views. No distortion. Reidentified is a long-term stable 1 cm mass central to the nipple. RIGHT BREAST ULTRASOUND 2-D and color Doppler imaging submitted. There are 2 hypoechoic nodules in the RIGHT breast at 9:00. The largest measures 4 x 7 x 3 mm and cor responds to the mammographic abnormality. There is a smaller similar nodule adjacent which is probabl y a lymph node. These have very benign appearances although they're not completely cystic. Favor thes e are small lymph nodes. MM/MM diag RT tomosynthesis [id number] IMPRESSION: BI-RADS: 2- Benign FOLLOW UP: 1 Year Follow-up
== END 2024-03-19 10:27 | disposition home or self-care (01) ==
LOC: RAD 10:27
PROVIDERS: PCP Nurse Practitioner; Visit Provider Nurse Practitioner
DX: R92.8 Other abnormal and inconclusive findings on diagnostic imaging of breast (principal)
CPT/HCPCS: 76642; 77061; G0279

== ENCOUNTER → 2024-03-23 08:57 | Outpatient (BNVA) | payer OTHER, SELFPAY | PROVIDERS: PCP Nurse Practitioner; Visit Provider Specialist | DX: M18.12 Unilateral primary osteoarthritis of first carpometacarpal joint, left hand (principal); Z71.89 Other specified counseling | CPT/HCPCS: 20600; J2795; J3301 ==

== ENCOUNTER → 2024-04-13 09:00 | Outpatient (BNVA) | payer OTHER, SELFPAY | PROVIDERS: PCP Nurse Practitioner; Visit Provider Thoracic Surgery (Cardiothoracic Vascular Surgery) | DX: S81.852A Open bite, left lower leg, initial encounter (principal); W54.0XXA Bitten by dog, initial encounter; I96 Gangrene, not elsewhere classified | CPT/HCPCS: 11043; 99213 ==

== ENCOUNTER → 2024-04-27 09:00 | Outpatient (BNVA) | payer OTHER, SELFPAY | PROVIDERS: PCP Nurse Practitioner | DX: I96 Gangrene, not elsewhere classified (principal); S81.852D Open bite, left lower leg, subsequent encounter; W54.0XXD Bitten by dog, subsequent encounter | CPT/HCPCS: 11042; A6212 ==

== ENCOUNTER 2024-05-08 13:03 | Outpatient (CLI) | payer OTHER, SELFPAY ==
--- NOTE | 2024-05-08 13:08 | USCV_ITS ---
Carolynn Chavez Age: 63 Gender: F : 1960 Exam Date: 05/08/2024 13:16 Ordering Phys: Lily Oh Technologist: OSMIN Exam Location: [facility] Indication: ulcers Risk Factors: Previous Vascular Surgery: RIGHT LEFT BP: 114.0 / 63.00 BP: 114.0/ 77.00 0 0 Waveform Velocity (cm/s) Velocity (cm/s) Waveform Triphasic 69.1 Iliac Prox 68.1 Triphasic Triphasic 64.2 Iliac Mid 64.8 Triphasic Triphasic 60.8 Iliac Distal 50.7 Triphasic Triphasic 77.0 WORKERS' COMPENSATION MAGISTRATE 56.0 Triphasic Triphasic 93.0 SFA Prox 71.0 Triphasic Triphasic 86.0 SFA Mid 85.0 Triphasic Triphasic SFA Dist Triphasic 62.0 54.0 Triphasic 51.0 POP 56.0 Triphasic Triphasic 70.0 HVAC INSTALLER 66.0 Triphasic Triphasic 63.0 DPA 64.0 Triphasic 1.3 CARLOTA 1.4 FINDINGS Interval thickening and scattered minimal plaques in the iliac , femoral and popliteal arteries bilaterally. Normal arterial Doppler waveforms and velocities Resting CARLOTA 1.3 on the right and 1.4 on the left CONCLUSIONS Normal resting ABIs bilaterally suggesting no significant arterial obstruction. Intimal thickening and scattered minimal plaques in the above- mentioned arteries with no unstable lesions Dr Ting Rowe MD [facility] (Electronically Signed) Final Date: 10 May 2024 08:04 S
== END 2024-05-08 13:04 | disposition home or self-care (01) ==
LOC: RAD 13:04
PROVIDERS: PCP Nurse Practitioner; Visit Provider Nurse Practitioner
DX: Z01.89 Encounter for other specified special examinations (principal); L97.519 Non-pressure chronic ulcer of other part of right foot with unspecified severity; R93.6 Abnormal findings on diagnostic imaging of limbs
CPT/HCPCS: 11042; 93925; 97597; A6212

== ENCOUNTER → 2024-05-17 10:26 | Outpatient (BNVA) | payer OTHER, SELFPAY | PROVIDERS: PCP Nurse Practitioner; Visit Provider Thoracic Surgery (Cardiothoracic Vascular Surgery) | DX: I96 Gangrene, not elsewhere classified (principal); S81.852D Open bite, left lower leg, subsequent encounter; W54.0XXD Bitten by dog, subsequent encounter; S81.811D Laceration without foreign body, right lower leg, subsequent encounter; X58.XXXD Exposure to other specified factors, subsequent encounter | CPT/HCPCS: 97597 ==

== ENCOUNTER → 2024-05-28 13:18 | Outpatient (BNVA) | payer OTHER, SELFPAY | PROVIDERS: PCP Nurse Practitioner; Visit Provider Podiatrist Foot & Ankle Surgery | DX: M21.371 Foot drop, right foot; M20.41 Other hammer toe(s) (acquired), right foot; M20.42 Other hammer toe(s) (acquired), left foot; M21.41 Flat foot [pes planus] (acquired), right foot; M21.42 Flat foot [pes planus] (acquired), left foot; M20.21 Hallux rigidus, right foot | CPT/HCPCS: 99213 ==

== ENCOUNTER → 2024-05-31 10:29 | Outpatient (BNVA) | payer OTHER, SELFPAY | PROVIDERS: PCP Nurse Practitioner; Visit Provider Thoracic Surgery (Cardiothoracic Vascular Surgery) | DX: I96 Gangrene, not elsewhere classified (principal); L97.821 Non-pressure chronic ulcer of other part of left lower leg limited to breakdown of skin; Z09 Encounter for follow-up examination after completed treatment for conditions other than malignant neoplasm | CPT/HCPCS: 97597 ==

== ENCOUNTER → 2024-06-29 08:17 | Outpatient (BNVA) | payer OTHER, SELFPAY | PROVIDERS: PCP Nurse Practitioner; Visit Provider Specialist | DX: M18.0 Bilateral primary osteoarthritis of first carpometacarpal joints (principal) | CPT/HCPCS: 99213 ==

== ENCOUNTER 2024-08-02 06:00 | Outpatient (CLI) | payer OTHER, SELFPAY | END 2024-08-02 06:01 | disposition home or self-care (01) | LOC: RAD 08-15 05:37 | PROVIDERS: PCP Nurse Practitioner; Visit Provider Podiatrist Foot & Ankle Surgery | DX: S92.002A Unspecified fracture of left calcaneus, initial encounter for closed fracture (principal); W11.XXXA Fall on and from ladder, initial encounter; M77.32 Calcaneal spur, left foot | CPT/HCPCS: 28400; 73630; 99214 ==

== ENCOUNTER 2024-08-02 16:34 | Outpatient (CLI) | payer OTHER, SELFPAY | END 2024-08-02 16:35 | disposition home or self-care (01) | LOC: SPT 08-06 10:36 | PROVIDERS: PCP Nurse Practitioner; Visit Provider Podiatrist Foot & Ankle Surgery | DX: Z46.89 Encounter for fitting and adjustment of other specified devices (principal); S92.012D Displaced fracture of body of left calcaneus, subsequent encounter for fracture with routine healing; W11.XXXD Fall on and from ladder, subsequent encounter | CPT/HCPCS: L4361 ==

== ENCOUNTER 2024-08-08 08:18 | Outpatient (CLI) | payer OTHER, SELFPAY ==
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
== END 2024-08-08 08:19 | disposition home or self-care (01) ==
LOC: RAD 08:19
PROVIDERS: PCP Nurse Practitioner; Visit Provider Nurse Practitioner
DX: S92.002A Unspecified fracture of left calcaneus, initial encounter for closed fracture (principal); X58.XXXA Exposure to other specified factors, initial encounter; M79.89 Other specified soft tissue disorders; R93.6 Abnormal findings on diagnostic imaging of limbs
CPT/HCPCS: 73700

== ENCOUNTER → 2024-08-22 14:21 | Outpatient (BNVA) | payer OTHER, SELFPAY | PROVIDERS: PCP Nurse Practitioner; Visit Provider Nurse Practitioner Family | DX: S50.911A Unspecified superficial injury of right forearm, initial encounter (principal); S50.912A Unspecified superficial injury of left forearm, initial encounter; L82.1 Other seborrheic keratosis; D22.5 Melanocytic nevi of trunk; L81.4 Other melanin hyperpigmentation; L57.8 Other skin changes due to chronic exposure to nonionizing radiation; X58.XXXA Exposure to other specified factors, initial encounter | CPT/HCPCS: 99213 ==

== ENCOUNTER → 2024-08-23 11:08 | Outpatient (BNVA) | payer OTHER, SELFPAY | PROVIDERS: PCP Nurse Practitioner; Visit Provider Podiatrist Foot & Ankle Surgery | DX: S92.015D Nondisplaced fracture of body of left calcaneus, subsequent encounter for fracture with routine healing (principal); W11.XXXD Fall on and from ladder, subsequent encounter | CPT/HCPCS: 73650; 99214 ==

== ENCOUNTER → 2024-09-10 11:12 | Outpatient (BNVA) | payer OTHER, SELFPAY | PROVIDERS: PCP Nurse Practitioner; Visit Provider Podiatrist Foot & Ankle Surgery | DX: S92.015D Nondisplaced fracture of body of left calcaneus, subsequent encounter for fracture with routine healing (principal); W11.XXXD Fall on and from ladder, subsequent encounter | CPT/HCPCS: 73650; 99213 ==

== ENCOUNTER → 2024-09-24 11:11 | Outpatient (BNVA) | payer OTHER, SELFPAY | PROVIDERS: PCP Nurse Practitioner; Visit Provider Podiatrist Foot & Ankle Surgery | DX: S92.012D Displaced fracture of body of left calcaneus, subsequent encounter for fracture with routine healing (principal); W11.XXXD Fall on and from ladder, subsequent encounter | CPT/HCPCS: 73650; 99214 ==

== ENCOUNTER → 2024-10-25 11:01 | Outpatient (BNVA) | payer OTHER, SELFPAY | PROVIDERS: PCP Nurse Practitioner; Visit Provider Podiatrist Foot & Ankle Surgery | DX: S92.012D Displaced fracture of body of left calcaneus, subsequent encounter for fracture with routine healing (principal); W11.XXXD Fall on and from ladder, subsequent encounter | CPT/HCPCS: 73650; 99214 ==

== ENCOUNTER → 2024-12-18 10:48 | Outpatient (BNVA) | payer OTHER, SELFPAY | PROVIDERS: PCP Nurse Practitioner; Referring Provider Nurse Practitioner; Visit Provider Psychiatry & Neurology Neurology | DX: R20.0 Anesthesia of skin (principal); R20.2 Paresthesia of skin; R29.898 Other symptoms and signs involving the musculoskeletal system | CPT/HCPCS: 95912 ==

== ENCOUNTER → 2025-01-14 11:38 | Outpatient (BNVA) | payer OTHER, SELFPAY | PROVIDERS: PCP Nurse Practitioner; Visit Provider Podiatrist Foot & Ankle Surgery | DX: S92.012D Displaced fracture of body of left calcaneus, subsequent encounter for fracture with routine healing (principal); W11.XXXA Fall on and from ladder, initial encounter | CPT/HCPCS: 73650; 99213 ==

== ENCOUNTER → 2025-01-21 14:21 | Outpatient (BNVA) | payer OTHER, SELFPAY | PROVIDERS: PCP Nurse Practitioner; Visit Provider Specialist | DX: M18.0 Bilateral primary osteoarthritis of first carpometacarpal joints (principal); G56.13 Other lesions of median nerve, bilateral upper limbs | CPT/HCPCS: 73130; 99214 ==

== ENCOUNTER 2025-03-22 14:48 | Emergency (ER) | payer OTHER, SELFPAY ==
[2025-03-22 14:53] VITALS: BP 127/84; PULSE 100; RESP 18; TEMP 37.4; O2SAT 99; BMI 20.9
--- NOTE | 2025-03-22 15:49 | XRR_ITS ---
PROCEDURE INFORMATION: Exam: XR Chest Exam date and time: 03/22/2025 5:43 PM Age: 64 years old Clinical indication: Prior surgery; Surgery date: 6+ months; Surgery type: Bilat shoulders; Mediastinal chest pain that radiates posteriorly; HX HTN TECHNIQUE: Imaging protocol: Radiologic exam of the chest. Views: 1 view. COMPARISON: CT chest abdpel w/*[id number] 08/09/2018 1:39 PM FINDINGS: Lungs: Unremarkable. No consolidation. Pleural spaces: Unremarkable. No pleural effusion. No pneumothorax. Heart/Mediastinum: Unremarkable. No cardiomegaly. Bones/joints: Unremarkable. XR/XR chest 1V portable [id number] IMPRESSION: No acute findings.
--- NOTE | 2025-03-22 16:22 | ECG_ITS ---
[facility]25[facility]22 Pat Name: Carolynn Chavez Department: Room: Gender: Female Technical Services Coordinator: : 1960 Requested By: Basim Saenz Order Number: [id number] Ravinder MD: Tino Abdi M.D. Measurements Intervals [place] Rate: 79 P: 65 MS: 138 QRS: 65 QRSD: 85 T: 47 QT: 355 QTc: 409 Interpretive Statements SINUS RHYTHM POSSIBLE LEFT ATRIAL ENLARGEMENT [-0.1mV P-WAVE IN V1/V2] Compared to ECG 03/22/2025 14:53:08 Sinus tachycardia no longer present Electronically Signed On 03-22-2025 19:42:01 URBAN GARDENING SPECIALIST by Tino Abdi M.D. [id number]
[2025-03-22 16:35] LABS: Hematocrit 37.5 % (36-47); Hemoglobin 12.20 g/dL (11.27-16.99); Mean Corpuscular HGB Conc 32.5 g/dL (30-55); Mean Corpuscular Hemoglobin 31.9 pg (27-33); Mean Corpuscular Volume 97.9 fl (85-98); Nucleated Red Blood Cells % 0 %; Platelet Count 232 10^3/cmm (157-399); Red Blood Count 3.83 10^6/uL (3.85-5.65); White Blood Count 8.54 10^3/uL (3.29-11.43)
[2025-03-22 16:36] VITALS: BP 164/95; PULSE 81; RESP 16; O2SAT 99
[2025-03-22 16:48] LABS: Alanine Aminotransferase 18 U/L (0-33); Albumin Level 4.5 g/dL (3.5-5.2); Alkaline Phosphatase 81 U/L (35-105); Anion Gap 19.0 (5-19); Aspartate Amino Transferase 28 U/L (0-32); Blood Urea Nitrogen 13 mg/dL (8-23); Calcium 9.6 mg/dL (8.5-10.5); Carbon Dioxide 24 mmol/L (22-29); Chloride 96 mmol/L (98-107); Globulin 2.0 g/dL (1.3-4.6); Glucose 132 mg/dL (65-115); Osmolality Calculated 278 mOsm/kg (285-295); Potassium 6.0 mmol/L (3.5-5.1); Sodium 133 mmol/L (136-145); Total Protein 6.5 g/dL (6.6-8.7)
[2025-03-22 16:51] LABS: Troponin(5th) Baseline 12 ng/L (0-10)
[2025-03-22 17:00] VITALS: BP 152/91; PULSE 82; RESP 16; O2SAT 99
--- NOTE | 2025-03-22 17:08 | ED_ITS ---
HPI - Chest Pain 2 General: Chief Complaint: Chest Pain Stated Complaint: CP Time Seen by Provider: 03/22/25 16:17 History of Present Illness: Patient is a 64-year-old female with history of osteoarthritis, HTN on lisinopril 5 mg daily, presents to the emergency room due to chest pain. This started approximately at 1350 today, and is still present, with slightly less dullness. This is a pressure dullness on the left side of her chest that radiates through to the back. It does not radiate anywhere else. There is no shortness of breath, or nausea with this. She has never had a cardiac rule out. She does not have history of ischemic disease. No family history that she is aware of, although she is adopted. She is of optimal weight, with BMI of 21, non-smoker, no alcohol intake, and last cholesterol was 203. Initial EKG findings are normal sinus rhythm. Associated symptoms: Deny abdominal pain, dyspnea, fever(s), nausea, palpitations or vomiting Related Data Home Medications ?Medication ?Instructions ?Recorded ?Confirmed gabapentin 300 mg capsule 300 mg PO TID 04/17/2001/21 ipratropium 18 mcg-albuterol 103 1 spray inhalation Q8 H PRN 04/17/20 01/21/25 mcg/actuation aerosol inhaler shortness of breath or w heezing lisinopril 5 mg tablet 5 mg PO DAILY 04/17/2001/21 calcium carbonate 1,000 1 tab PO DAILY 10/02/2001/07 mg-simethicone 60 mg chewable tablet glucosamine sulfate 2KCl 1,000 mg 1,000 mg PO DAILY 01/21/25 tablet (Glucosamine Relief) multivitamin 1 tab PO DAILY 10/02/2001/07 meloxicam 15 mg tablet 15 mg PO DAILY 01/18/2301/07 Previous Rx's ?Medication ?Instructions ?Recorded [facility] left thumb splint #1 ea 02/03/22 EXTRA depth Orthopedic Shoes #1 ea 03/07/23 CO-Poly custom insoles L3010 with #2 ea 05/28/24 crest pad option cam boot-Left #1 ea 08/02/24 nitroglycerin 0.4 mg sublingual 0.4 mg sublingual Q5M PRN chest 03/22/25 tablet pain #30 tabs Allergies Allergy/AdvReac Type Severity Reaction Status Date / Time No Known Allergies Allergy Verified 01/21/25 07:52 Review of Systems 2 General: Reports: 10 or more systems reviewed and unremarkable except in HPI and below Const: Denies: fever(s) or chills Card: Reports: chest pain; Denies: palpitations, lightheadedness, dyspnea on exertion or orthopnea Resp: Denies: dyspnea, productive cough or wheezing GI: Denies: abdominal pain, nausea or vomiting : Denies: difficulty voiding Musc: Reports: back pain (radiation to the back); Denies: neck pain Skin/Breast: Denies: changes in skin color or dry skin Neuro: Denies: numbness in extremities or weakness in extremities Psych: Denies: anxiety [place]/Lymph: Denies: easy bruising or easy bleeding PFSH ED 2 PFSH: Medical History (Updated 03/22/25 @ 19:18 by BASIL Gerber) IgA deficiency Chronic obstructive pulmonary disease HTN (hypertension) Depression FH: total knee replacement Surgical History History of back surgery H/O shoulder surgery Social History Smoking and tobacco/nicotine status: former use of tobacco/nicotine Second hand smoke exposure: No Alcohol intake: never Substance/Drug Use: never Adopted: Yes Lives independently: Yes Household members: spouse Marital status: Current occupational status: employed Current gender identity: Female Physical Exam 2 Const: COMMON NORMALS: no acute distress, average body habitus, patient oriented x3, no limitations, alert and well nourished GENERAL APPEARANCE: c ooperative ORIENTATION/CONSCIOUSNESS: Yes awake, Yes oriented to person, Yes oriented to place and Yes oriented to time HENMT: COMMON NORMALS: normocephalic and atraumatic HEAD & SCALP: n ormocephalic and atraumatic Eye: GENERAL EYE: appearance normal, both eyes and all related structures E YELID: eyelids normal Neck/C-Spine: COMMON NORMALS: full ROM and no lymphadenopathy Chest: COMMONS NORMALS: normal inspection of the chest and normal palpation of entire chest wall OTHER: No reproducible chest pain Resp: COMMON NORMALS: normal respiratory effort EFFORT & INSPECTION: Yes able to speak in complete sentences and Yes symmetric chest movement Cardio: COMMON NORMALS: regular rate and regular rhythm RATE: regular rate RHYTHM: regular rhythm GI: COMMON NORMALS: Normal to inspection, nondistended, normoactive bowel sounds present, Soft to palpation, non-tender (Negative Jaramillo's) and No hepatosplenomegaly present PALPATION: Yes Soft to palpation and Yes No hepatosplenomegaly present : COMMON NORMALS: Yes no CVA tenderness BLADDER/KIDNEY EXAM: Yes no CVA tenderness Back/Pelvis: COMMON NORMALS: no CVA tenderness and thoracic and lumbar spine normal to inspection Neuro: COMMON NORMALS: patient oriented x3 SENSORIUM/ORIENTATION: Yes alert, Yes oriented to person, Yes oriented to place and Yes oriented to time SPEECH: speech normal Psych: ATTITUDE: Yes engaged ACTIVITY/MOTOR BEHAVIOR: Yes appropriate eye contact ATTENTION/CONCENTRATION: Yes attention grossly intact M REYNALDO/COGNITION: Yes memory grossly intact Skin: COMMON NORMALS: no rashes or lesions noted, turgor normal and no jaundice GENERAL SKIN EXAM: no rashes or lesions noted and turgor normal Course 2 Reevaluation(s): Reevaluation #1: Chest pain down to a 3 after nitroglycerin x 1. Nursing giving morphine to try. Reevaluation #2: Patient states her chest pain did resolve after the morphine and nitroglycerin. Consultations: Consultation #1: Case management order has been placed for referral to cardiology for ischemic workup. Vital Signs: Vital signs: Vital Signs Temperature 99.4 F 03/22/25 14:53 Pulse Rate 76 03/22/25 19:28 Respiratory Rate 16 03/22/25 19:00 Blood Pressure 151/76 03/22/25 19:28 Pulse Oximetry 98 03/22/25 19:28 Oxygen Delivery Me thod Room Air 03/22/25 19:00 MDM - Chest Pain Medical Decision Making Patient is a 64-year-old female with nearly no risk factors, presents with left- sided chest pain. She is unaware of family history, and is adopted. Initial EKG findings show normal sinus rhythm. Troponin baseline is 12. Potassium is elevated at 6, which will be repeated to ensure this is not hemolyzed. Reevaluation shows improvement with nitroglycerin x 1. As noted, patient has already had her aspirin at home. Patient was carrying boxes when she had this pain, not heavy boxes, however it was exertional. I am concerned about ACS. Heart score is 2. Will await second troponin and reevaluation to see if chest pain improves. Since patient's chest pain did not improve, she will be referred to cardiology for ischemic workup with concern of ischemia. All her questions answered her satisfaction. Lab Data 03/22/25 16:07 03/22/25 17:37 Radiology Impressions Chest X-Ray 03/22/25 15:49 IMPRESSION: No acute findings. Laboratory Results WBC 8.54 10^3/uL (3.29-11.43) 03/22/25 16:07 RBC 3.83 10^6/uL (3.85-5.65) L 03/22/25 16:07 Hgb 12.20 g/dL (11.27-16.99) 03/22/25 16:07 Hct 37.5 % (36-47) 03/22/25 16:07 MCV 97.9 fl (85-98) 03/22/25 16:07 MCH 31.9 pg (27-33) 03/22/25 16:07 MCHC 32.5 g/dL (30-55) 03/22/25 16:07 RDW 13.8 % (12.1-15.1) 03/22/25 16:07 Plt Count 232 10^3/cmm (157-399) 03/22/25 16:07 MPV 9.7 fL (7.4-10.4) 03/22/25 16:07 Neut % (Auto) 81.9 % 03/22/25 16:07 Lymph % (Auto) 12.2 % 03/22/25 16:07 [place] % (Auto) 5.2 % 03/22/25 16:07 Eos % (Auto) 0.1 % 03/22/25 16:07 Baso % (Auto) 0.4 % 03/22/25 16:07 Neut # (Auto) 7.00 10^3/uL (1.8-7.7) 03/22/25 16:07 Lymph # (Auto) 1.0 10^3/uL (0.8-4.8) 03/22/25 16:07 [place] # (Auto) 0.4 10^3/uL (0.2-0.9) 03/22/25 16:07 Eos # (Auto) 0.0 10^3/uL (0.0-0.8) 03/22/25 16:07 Baso # (Auto) 0.0 10^3/uL (0.0-0.1) 03/22/25 16:07 Nucleated RBC % (auto) 0 % 03/22/25 16:07 Nucleated RBCs # 0.0 /100WBC 03/22/25 16:07 Sodium 133 mmol/L (136-145) L 03/22/25 16:07 Potassium 5.1 mmol/L (3.5-5.1) 03/22/25 17:37 Chloride 96 mmol/L (98-107) L 03/22/25 16:07 Carbon Dioxide 24 mmol/L (22-29) 03/22/25 16:07 Anion Gap 19.0 (5-19) 03/22/25 16:07 BUN 13 mg/dL (8-23) 03/22/25 16:07 Creatinine 1.0 mg/dL (0.5-0.9) H 03/22/25 16:07 GFR Calculation 55.5 mL/min (90-130) L 03/22/25 16:07 Glucose 132 mg/dL (65-115) H 03/22/25 16:07 Calculated Osmolality 278 mOsm/kg (285-295) L 03/22/25 16:07 Calcium 9.6 mg/dL (8.5-10.5) 03/22/25 16:07 Total Bilirubin 0.3 mg/dL (0.15-1.2) 03/22/25 16:07 AST 28 U/L (0-32) 03/22/25 16:07 ALT 18 U/L (0-33) 03/22/25 16:07 Alkaline Phosphatase 81 U/L (35-105) 03/22/25 16:07 Troponin T Baseline 12 ng/L (0-10) H 03/22/25 16:07 Troponin T 120 Minute 11.15 ng/L (0-10) H 03/22/25 17:37 Delta Troponin T -0.85 ABS# (0-10) L 03/22/25 17:37 Total Protein 6.5 g/dL (6.6-8.7) L 03/22/25 16:07 Albumin 4.5 g/dL (3.5-5.2) 03/22/25 16:07 Globulin 2.0 g/dL (1.3-4.6) 03/22/25 16:07 XR interpretation done by ED provider, pending radiology final review ED provider radiology interpretation(s): No acute findings on my view EKG Data EKG 1: Interpretation: Normal sinus rhythm, normal axis, no ST segment elevation, QTc 390 Discharge Plan Discharge Patient Disposition: Home Clinical Impression: Atypical chest pain Condition: Stable Prescriptions: New nitroglycerin 0.4 mg tablet, sublingual 0.4 mg sublingual Q5M PRN (Reason: chest pain) Qty: 30 0RF Rx Instructions: do not exceed 3 doses per episode No Action multivitamin Tablet 1 tab PO DAILY calcium carbonate-simethicone 1,000-60 mg tablet,chewable 1 tab PO DAILY glucosamine sulfate 2KCl [Glucosamine Relief] 1,000 mg tablet 1,000 mg PO DAILY Rx Instructions: administer with meals gabapentin 300 mg capsule 300 mg PO TID ipratropium-albuterol 18-103 mcg/actuation aerosol 1 spray inhalation Q8H PRN (Reason: shortness of breath or wheezing) lisinopril 5 mg tablet 5 mg PO DAILY meloxicam 15 mg tablet 15 mg PO DAILY (DME) CO-Poly custom insoles L3010 with crest pad option See Rx Instructions .Route .MEDSUPPLY Qty: 2 0RF Rx Instructions: As directed to the shoe guys (DME) cam boot-Left See Rx Instructions .Route .MEDSUPPLY Qty: 1 0RF Rx Instructions: As directed (DME) [facility] left thumb splint See Rx Instructions .Route .MEDSUPPLY Qty: 1 0RF Rx Instructions: As directed (DME) EXTRA depth Orthopedic Shoes See Rx Instructions .Route .MEDSUPPLY Qty: 1 0RF Rx Instructions: As directed by [facility] and Daily Living Medical Discharge Orders: Discharge ED (Routine); Ordered 03/22/25 Ordered By: Chika Pa Referrals: Osmany Person MD [Physician, Cardiology] - 4-7 days Lily Oh FNP [Primary Care Provider, Nurse Practitioner] Discharge Diet: Low Salt Discharge Activity: Resume usual activity Patient Instructions: Potassium Content of Foods List (ED), DASH Eating Plan (ED), Patient Portal & [place] Instructions Activity Restrictions/Additional Instructions: - Potassium is 5.1. Avoid foods rich in potassium (beans, milk, bananas, potatoes, fries) I will give you information. - Low sodium diet is best. I will give you information on the Dash eating plan. - Take baby aspirin daily. This can be coated. - Follow-up with cardiology. Referral has been placed in the system. Thank you for choosing [facility] for your healthcare needs today. You have been screened and evaluated and felt safe for discharge. Health conditions do change or evolve sometimes and as such it is important that you follow up with your Primary Doctor to be re checked, 3-5 days is a general good time frame for follow up. You are always welcome to return to the ED for re assessment if your symptoms are worsening or you have new concerns all Print Language: Khmer Coding Level of Care Code ED File Clerk Data Entry for Hilda Ornelas Heart Score HEART Score Components History: Slightly Suspicous EKG: Normal Age: 65 or more yrs Risk Factors: No Risk Factors Known Troponin: Baseline Trop <16 ng/L HEART Score RESULT HEART Score: 2
--- NOTE | 2025-03-22 17:49 | ECG_ITS ---
[facility]: 2025-[facility]22 Pat Name: Carolynn Chavez Department: Room: Gender: Female Gas Welder: : 1960 Requested By: Basim Saenz Order Number: [id number] Ravinder MD: Tino Abdi M.D. Measurements Intervals [place] Rate: 100 P: 72 [place]: 128 QRS: 73 QRSD: 89 T: 55 QT: 323 QTc: 417 Interpretive Statements SINUS TACHYCARDIA POSSIBLE LEFT ATRIAL ENLARGEMENT [-0.1mV P-WAVE IN V1/V2] Compared to ECG 08/09/2018 13:57:41 Short OK interval no longer present Incomplete right bundle-branch block no longer present Electronically Signed On 03-22-2025 19:43:40 WEB INTERFACE DEVELOPER by Tino Abdi M.D. [id number]
[2025-03-22] MEDS: morphine 4 mg/mL SDV 1 mL IVP (17:50)
[2025-03-22 18:00] VITALS: BP 122/76; PULSE 86; RESP 16; O2SAT 94
[2025-03-22 18:12] LABS: Troponin 5 2HR 11.15 ng/L (0-10)
[2025-03-22 18:22] LABS: Troponin 5 2HR Delta -0.85 ABS# (0-10)
[2025-03-22 18:45] LABS: Potassium 5.1 mmol/L (3.5-5.1)
[2025-03-22 19:00] VITALS: BP 147/88; PULSE 74; RESP 16; O2SAT 99
[2025-03-22 19:28] VITALS: BP 151/76; PULSE 76; O2SAT 98
== END 2025-03-22 19:30 | disposition home or self-care (01) ==
PROVIDERS: Family Medicine; Emergency Provider Physician Assistant; PCP Nurse Practitioner
DX: R07.89 Other chest pain (principal); Z87.891 Personal history of nicotine dependence; I10 Essential (primary) hypertension; J44.9 Chronic obstructive pulmonary disease, unspecified
CPT/HCPCS: 36415; 71045; 80053; 84132; 84484; 85025; 93005; 96374; 99285; J2270; J9999

== ENCOUNTER → 2025-05-08 15:37 | Outpatient (BNVA) | payer OTHER, SELFPAY | PROVIDERS: PCP Nurse Practitioner; Referring Provider Nurse Practitioner; Visit Provider Internal Medicine Cardiovascular Disease | DX: R07.89 Other chest pain (principal); I10 Essential (primary) hypertension | CPT/HCPCS: 93005; 99204 ==